=== PATIENT | male | born 1990 ===

== ENCOUNTER 2020-07-04 21:14 | Emergency (ER) | payer OTHER ==
[2020-07-04] MEDS ORDERED: ALPRAZolam 1 MG TABLET PO PRN (21:37)
[2020-07-04] MEDS ORDERED: ALPRAZolam 0.25 MG TABLET ONE (21:39)
[2020-07-04 21:51] VITALS: BP 132/83; PULSE 110; TEMP 98; BMI 23.8
== END 2020-07-04 22:24 | disposition home or self-care (01) ==
LOC: FER 21:14
DX: T40.7X5A Adverse effect of cannabis (derivatives), initial encounter (principal)
CPT/HCPCS: 99283-25